=== PATIENT | male | born 1995 | race African-American/Black ===

== ENCOUNTER 2019-02-14 14:55 | Emergency (ER) | payer BC ==
[~2019-02-14] VITALS: Ht 182.9 cm; Wt 95.3 kg
[2019-02-14 16:12] VITALS: BP 136/72
== END 2019-02-14 16:12 | disposition home or self-care (01) ==
LOC: M.ERS 14:55
DX: R07.0 Pain in throat (principal)

== ENCOUNTER 2020-03-21 17:45 | Emergency (ER) | payer BC ==
[~2020-03-21] VITALS: Ht 182.9 cm; Wt 90.7 kg
[2020-03-21] MEDS ORDERED: AUGMENTIN 875-1 EACH PO (17:55)
[2020-03-21] MEDS ORDERED: ALLEGRA-D 24 H1 EACH PO (18:57)
[2020-03-21 19:17] VITALS: BP 156/76
== END 2020-03-21 19:18 | disposition home or self-care (01) ==
LOC: M.ERS 17:45
DX: J32.0 Chronic maxillary sinusitis (principal)